=== PATIENT | male | born 1995 | race American Indian/Alaskan Native ===

== ENCOUNTER 2017-07-30 00:03 | Emergency (ER) | payer SELFPAY ==
[2017-07-30 00:17] VITALS: BP 124/70; PULSE 84; RESP 18; TEMP 98.1; O2SAT 99
[2017-07-30] MEDS ORDERED: Lidocaine 1% Inj (20ml) ONE (00:35)
--- NOTE | 2017-07-30 00:59 | ED PDOC ---
Arrival/HPI - General Historian: Patient - General Chief Complaint: Abnormal Skin Integrity Time Seen by Provider: 07/30/17 00:56 - History of Present Illness Narrative History of Present Illness (Text): 07/30/17 00:56 Patient is a 21M with no past medical history who comes to the ED with a CC of a laceration on his L thigh that occurred while he was at work. He was trying to fix a barrier at the [employer] when the drill slipped and hit his thigh. He has no other complaints at this time. He came to the ED immediately after the injury. (Genaro Borrero) Past Medical History - Psychiatric Hx Substance Use: No Family/Social History Family/Social History: No Known Family HX Smoking Status: no Hx Alcohol Use: No Hx Substance Use: No Review of Systems - Review of Systems Constitutional: Normal Eyes: Normal ENT: Normal Respiratory: Normal Cardiovascular: Normal Gastrointestinal: Normal Genitourinary Male: Normal Musculoskeletal: Normal Skin: Normal Neurological: Normal Endocrine: Normal Hemo/Lymphatic: Normal Psychiatric: Normal Physical Exam Temperature: Afebrile Blood Pressure: Normal Pulse: Regular Respiratory Rate: Normal Appearance: Positive for: Well-Appearing Pain Distress: None Mental Status: Positive for: Alert and Oriented X 3 - Systems Exam Head: Present: Atraumatic Pupils: Present: PERRL Extroacular Muscles: Present: EOMI Conjunctiva: Present: Normal Mouth: Present: Moist Mucous Membranes Neck: Present: Normal Range of Motion Respiratory/Chest: Present: Clear to Auscultation, Good Air Exchange Cardiovascular: Present: Regular Rate and Rhythm, Normal S1, S2 Abdomen: Present: Normal Bowel Sounds. No: Tenderness, Distention, Peritoneal Signs Upper Extremity: Present: Normal Inspection, Edema. No: Cyanosis Lower Extremity: Present: Other (5cm superficial laceration of the L. thigh) Skin: Present: Warm, Dry, Normal Color. No: Rashes Psychiatric: Present: Alert, Oriented x 3 Vital Signs Temp Pulse Resp BP Pulse Ox 07/30/17 00:15 98.1 F 84 18 124/70 99 Medical Decision Making ED Course and Treatment: Patient Seen With Resident: In agreement with resident note which contains more details about the patient. Patient was seen and evaluated with resident. Came up with plan and treatment together. (Marbin Means) Procedure: Wound Repair - Time Performed Time Performed: 01:00 - Time Out Time Out: Side verified, Site verified, Patient ID confirmed, Sterile procedures obs. 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 MD/DO has examined the patient and agrees with the treatment plan. Disposition/Present on Arrival - Present on Arrival Any Indicators Present on Arrival: No History of DVT/PE: No History of Uncontrolled Diabetes: No Urinary Catheter: No History of Decub. Ulcer: No History Surgical Site Infection Following: None - Disposition Have Diagnosis and Disposition been Completed?: Yes Disposition Time: 01:02 Patient Plan: Discharge - Disposition Diagnosis: Leg laceration Disposition: HOME/ ROUTINE Condition: GOOD Additional Instructions: please take dressing off when you get home shower regularly please visit PMD in 5-7 days for suture removal, if you cannot get an appointment come to the ED and we will remove them. If fever or chills occur please come back to the ED Forms: [employer] (Romansh)
== END 2017-07-30 01:55 | disposition home or self-care (01) ==
LOC: ED 00:03
DX: S71.112A Laceration without foreign body, left thigh, initial encounter (principal); W31.1XXA Contact with metalworking machines, initial encounter; Y99.0 Civilian activity done for income or pay

== ENCOUNTER 2017-08-06 20:06 | Emergency (ER) | payer BC ==
[2017-08-06 20:11] VITALS: BP 121/77; PULSE 77; RESP 19; TEMP 98; O2SAT 99
--- NOTE | 2017-08-06 20:41 | ED PDOC ---
Arrival/HPI - General Chief Complaint: Suture/Staple Removal Time Seen by Provider: 08/06/17 20:29 Historian: Patient - History of Present Illness Narrative History of Present Illness (Text): 08/06/17 20:36 This 21 yo male presents to this ED for sutures removal x 8 days. Patient stated wound is healing well, and he denies any somatic complain. Time/Duration: Other (see hpi) Context: Home Past Medical History - Provider Review Nursing Documentation Reviewed: Yes - Cardiac Hx Cardiac Disorders: No - Pulmonary Hx Respiratory Disorders: Yes Hx Asthma: Yes - Neurological Hx Neurological Disorder: No - HEENT Hx HEENT Disorder: No - Renal Hx Renal Disorder: No - Endocrine/Metabolic Hx Endocrine Disorders: No - Hematological/Oncological Hx Blood Disorders: No - Integumentary Hx Dermatological Disorder: Yes Other/Comment: LACERATION - Musculoskeletal/Rheumatological Hx Musculoskeletal Disorders: No - Gastrointestinal Hx Gastrointestinal Disorders: No - Genitourinary/Gynecological Hx Genitourinary Disorders: No - Psychiatric Hx Psychophysiologic Disorder: No Hx Substance Use: No Family/Social History - Physician Review Nursing Documentation Reviewed: Yes Family/Social History: Other (noncontributory) Smoking Status: Never Smoked Hx Alcohol Use: No Hx Substance Use: No Allergies/Home Meds Allergies/Adverse Reactions: Allergies No Known Allergies Allergy (Verified 08/06/17 20:08) Review of Systems - Review of Systems Constitutional: Normal. absent: Fatigue, Weight Change, Fevers Eyes: Normal ENT: Normal Respiratory: Normal Cardiovascular: Normal Gastrointestinal: Normal Genitourinary Male: Normal Musculoskeletal: Normal Skin: Other (left thigh healing wound with 3 sutures) Neurological: Normal Endocrine: Normal Hemo/Lymphatic: Normal Psychiatric: Normal Physical Exam Vital Signs Temp Pulse Resp BP Pulse Ox 08/06/17 20:08 98.0 F 77 19 121/77 99 Temperature: Afebrile Blood Pressure: Normal Pulse: Regular Respiratory Rate: Normal Appearance: Positive for: Well-Appearing, Non-Toxic, Comfortable Pain Distress: None Mental Status: Positive for: Alert and Oriented X 3 - Systems Exam Head: Present: Atraumatic, Normocephalic Mouth: Present: Moist Mucous Membranes Upper Extremity: Present: Normal Inspection, Normal ROM Lower Extremity: Present: Normal Inspection, NORMAL PULSES, Normal ROM, Neurovascularly Intact, Capillary Refill < 2 s, Other ((+) left wound healed well with [address] No: Erythema, Temperature Abnormalties Neurological: Present: GCS=15, CN II-XII Intact, Speech Normal, Motor Func Grossly Intact, Normal Sensory Function, Normal Cerebellar Funct, Gait Normal Skin: Present: Warm, Dry, Normal Color. No: Rashes Psychiatric: Present: Alert, Oriented x 3, Normal Insight, Normal Concentration Medical Decision Making ED Course and Treatment: 08/06/17 20:41 Re-evaluation. Patient feels better. Discussed results and plan with patient who expresses understanding. All questions answered and there is agreement with the plan to discharge home with instructions. Patient stable for discharge. Return if symptoms persist or worsen. Re-evaluation Time: 20:41 Reassessment Condition: Re-examined, Improved - Procedure PROCEDURE NOTE (Text): 08/06/17 20:39 PROCEDURE: SUTURE REMOVAL Performed by the emergency provider Location: left thigh Length: 2 cm Distal CMS: Normal. No deficits. Neurovascularly intact. Preparation: The wound was cleaned with NS and [place]. The area was prepped and draped in the usual sterile fashion. Procedure: In total, 3 sutures were removed. Post-Procedure: Good closure and hemostasis. The patient tolerated the procedure well and there were no complications. CSM remains intact. Disposition/Present on Arrival - Present on Arrival Any Indicators Present on Arrival: No History of DVT/PE: No History of Uncontrolled Diabetes: No Urinary Catheter: No History of Decub. Ulcer: No History Surgical Site Infection Following: None - Disposition Have Diagnosis and Disposition been Completed?: Yes Diagnosis: Encounter for wound re-check, Encounter for removal of sutures Disposition: HOME/ ROUTINE Disposition Time: 20:41 Patient Plan: Discharge Condition: GOOD Discharge Instructions (ExitCare): Stitches Removal Additional Instructions: continue cleaning wound daily with soap and water. return to emergency if new problem develop Referrals: [facility] [Outside] - Follow up with primary [facility] [Outside] - Follow up with primary
== END 2017-08-06 21:05 | disposition home or self-care (01) ==
LOC: ED 20:06
DX: Z48.02 Encounter for removal of sutures (principal)

== ENCOUNTER 2018-09-22 21:12 | Emergency (ER) | payer BC ==
--- NOTE | 2018-09-22 22:46 | ED PDOC ---
Arrival/HPI - General Historian: Patient - History of Present Illness Narrative History of Present Illness (Text): 09/22/18 22:42 Pt is a 22 yo male with no significant past medical history who presents complaining of sore throat. Pt states he visited an urgent care 2 days ago for his sore throat, the urgent care performed a rapid strep test which pt reports was positive. Pt was unable to fill his amoxicillin. Pt then went to his PMD today who stated that the pt did not have strep throat and gave the pt flexeril for right upper thigh MSK pain. Time/Duration: < week <David Patton - Last Filed: 09/23/18 05:24> <Priya Guzmán - Last Filed: 09/23/18 22:59> - General Chief Complaint: Flu-like Symptoms Past Medical History - Provider Review Primary Care Provider: Pedro Rehman - Infectious Disease Hx of Infectious Diseases: None - Cardiac Hx Cardiac Disorders: No - Pulmonary Hx Respiratory Disorders: Yes Hx Asthma: Yes - Neurological Hx Neurological Disorder: No - HEENT Hx HEENT Disorder: No - Renal Hx Renal Disorder: No - Endocrine/Metabolic Hx Endocrine Disorders: No - Hematological/Oncological Hx Blood Disorders: No - Integumentary Hx Dermatological Disorder: Yes Other/Comment: LACERATION - Musculoskeletal/Rheumatological Hx Musculoskeletal Disorders: No - Gastrointestinal Hx Gastrointestinal Disorders: No - Genitourinary/Gynecological Hx Genitourinary Disorders: No - Psychiatric Hx Psychophysiologic Disorder: No Hx Substance Use: No - Anesthesia Hx Anesthesia: Yes Hx Anesthesia Reactions: No Hx Malignant Hyperthermia: No <David Patton - Last Filed: 09/23/18 05:24> Family/Social History Family/Social History: No Known Family HX Smoking Status: Never Smoked Hx Alcohol Use: No Hx Substance Use: No <David Patton - Last Filed: 09/23/18 05:24> Allergies/Home Meds <David Patton - Last Filed: 09/23/18 05:24> <Priya Guzmán - Last Filed: 09/23/18 22:59> Allergies/Adverse Reactions: Allergies No Known Allergies Allergy (Verified 08/06/17 20:08) Home Medications: Home Meds Medication Instructions Recorded Confirmed No Known Home Med 08/06/17 08/06/17 Physical Exam Vital Signs Reviewed: Yes Vital Signs Temp Pulse Resp BP Pulse Ox 09/22/18 21:48 102.5 F H 117 H 15 121/71 99 Temperature: Febrile Blood Pressure: Normal Pulse: Tachycardic Respiratory Rate: Normal Appearance: Positive for: Well-Appearing Mental Status: Positive for: Alert and Oriented X 3 - Systems Exam Head: Present: Atraumatic, Normocephalic Pupils: Present: PERRL Extroacular Muscles: Present: EOMI Conjunctiva: Present: Normal Mouth: Present: Moist Mucous Membranes Pharnyx: Present: EXUDATE Neck: Present: Normal Range of Motion Respiratory/Chest: Present: Clear to Auscultation Cardiovascular: Present: Normal S1, S2. No: Murmurs Abdomen: No: Tenderness Upper Extremity: Present: Normal Inspection Lower Extremity: Present: Normal Inspection Neurological: Present: CN II-XII Intact Skin: Present: Warm, Dry, Rashes Psychiatric: Present: Alert, Oriented x 3 <David Patton - Last Filed: 09/23/18 05:24> Vital Signs Temp Pulse Resp BP Pulse Ox 09/23/18 00:16 98.4 F 98 H 14 125/72 100 09/22/18 23:56 98.4 F 98 H 14 125/72 100 09/22/18 22:35 102.5 F H 09/22/18 21:48 102.5 F H 117 H 15 121/71 99 <Priya Guzmán M - Last Filed: 09/23/18 22:59> Medical Decision Making ED Course and Treatment: 09/22/18 22:47 Rapid strep test NEGATIVE tylenol for Fever 102.5F 09/22/18 23:50 repeat temp 98.4F 09/22/18 23:52 pt to be discharged Pt seen, examined, assessment and plan discussed with Dr Sha Patton PGY1 - Medication Orders Current Medication Orders: Discontinued Medications Acetaminophen (Tylenol 325mg Tab) 650 mg PO STAT STA Stop: 09/22/18 22:23 <David Patton - Last Filed: 09/23/18 05:24> ED Course and Treatment: In agreement with resident note, which includes further HPI details. Patient was seen and evaluated with resident, came up with plan and treatment together. - Medication Orders Current Medication Orders: Discontinued Medications Acetaminophen (Tylenol 325mg Tab) 650 mg PO STAT STA Stop: 09/22/18 22:23 Last Admin: 09/22/18 22:35 Dose: 650 mg MAR Pain/Vitals Document 09/22/18 22:35 EB (Rec: 09/22/18 22:36 EB [id number]) Vitals Temperature (97.6 F-99.6 F) 102.5 F Temperature Source Oral <Priya Guzmán - Last Filed: 09/23/18 22:59> Disposition/Present on Arrival - Present on Arrival Any Indicators Present on Arrival: No History of DVT/PE: No History of Uncontrolled Diabetes: No Urinary Catheter: No History of Decub. Ulcer: No History Surgical Site Infection Following: None - Disposition Have Diagnosis and Disposition been Completed?: Yes Disposition Time: 23:54 <David Patton - Last Filed: 09/23/18 05:24> <Priya Guzmán - Last Filed: 09/23/18 22:59> - Disposition Diagnosis: Fever, Viral syndrome Disposition: HOME/ ROUTINE Condition: GOOD Discharge Instructions (ExitCare): Viral Syndrome (DC) Additional Instructions: SOY BALL JR, thank you for letting us take care of you today. Your provider was Priya Guzmán MD and you were treated for BODY PAIN/WEAK (R) SIDE. The emergency medical care you received today was directed at your acute symptoms. If you were prescribed any medication, please fill it and take as directed. It may take several days for your symptoms to resolve. Return to the Emergency Department if your symptoms worsen, do not improve, or if you have any other problems. Please contact your doctor or call one of the physicians/clinics you have been referred to that are listed on the Patient Visit Information form that is included in your discharge packet. Bring any paperwork you were given at discharge with you along with any medications you are taking to your follow up visit. Our treatment cannot replace ongoing medical care by a primary care provider outside of the emergency department. Thank you for allowing the [facility] team to be part of your care today. If you had an X-Ray or CT scan: A Radiologist will review the ED reading if any change in treatment is needed we will contact you. If you had a blood, urine, or wound culture: It will take several days for the results, if any change in treatment is needed we will contact you. If you had an STI test: It will take 48 hours for the results. Please call after 1 week if you have not heard back. Forms: [employer] (Norwegian)
[2018-09-22 23:57] VITALS: BP 125/72; PULSE 98; RESP 14; TEMP 98.4; O2SAT 100
== END 2018-09-23 00:16 | disposition home or self-care (01) ==
LOC: ED 21:12
DX: B34.9 Viral infection, unspecified (principal)